=== PATIENT | female | born 1940 | race Caucasian/White ===

== ENCOUNTER 2018-02-25 08:24 | Day surgery (SDC) | payer MEDICARE, OTHER ==
[2018-02-24 15:00] VITALS: BMI 23.3
[2018-02-25] MEDS ORDERED: Oxymetazoline HCl 0.05% ( 15 ML ) ONE ×2 (08:47→09:59)
[2018-02-25 09:37] LABS: #Eosinphils 0.2 thou/uL (0.0-0.7); #Lymphocytes 1.8 thou/uL (1.20-3.40); #Monocytes 0.7 thou/uL (0.11-0.59); #Neutrophils 4.6 thou/uL (1.40-6.50); %Basophils 0.6 % (0.0-1.0); %Eosinophils 3.2 % (0.0-10.0); %Lymphocytes 24.3 % (21.0-51.0); %Monocytes 8.9 % (0.0-10.0); %Neutrophils 63.1 % (42.0-75.0); Hemoglobin 10.5 g/dL (14.0-18.0); Mean Corpuscular HGB CONC 32.8 g/dL (32.0-36.0); Mean Corpuscular Hemoglobin 30.1 pg (27.0-31.0); Mean Platelet Volume 7.5 fL (7.4-10.4); Platelet Count 376 thou/uL (130-400); White Blood Cell (WBC) Count 7.3 thou/uL (4.8-10.8)
[2018-02-25] MEDS ORDERED: Scopolamine 1.5 mg/72 hour Patch ONE (09:42)
[2018-02-25] MEDS ORDERED: Fentanyl 100 MCG/2 ML VIAL ONE ×3 (09:58→11:16)
[2018-02-25] MEDS ORDERED: Bacitracin Zinc Ointment 30 gm TUBE ONE (09:59)
[2018-02-25] MEDS ORDERED: Lidocaine 1% w/Epinephrine 1:100K 30 ML VIAL ONE (09:59)
[2018-02-25 10:14] LABS: Anion Gap 14 mmol/L (10-20); BUN (Urea Nitrogen) 16 mg/dL (8.4-25.7); Calc. Creatinine Clearance 60 mL/min (70-130); Calcium 8.8 mg/dL (7.8-10.44); Carbon Dioxide 20 mmol/L (23-31); Chloride 108 mmol/L (98-107); Estimated GFR-MDRD 87; Glucose 92 mg/dL (83-110); Potassium 4.6 mmol/L (3.5-5.1); Sodium 137 mmol/L (136-145)
[2018-02-25] MEDS ORDERED: Acetaminophen 500 MG TAB ONE (12:51)
--- NOTE | 2018-02-26 10:47 | OP ---
DATE OF PROCEDURE: 02/25/2018 PREOPERATIVE DIAGNOSES: 1. Closed nasal fracture. 2. Nasal septal deviation. 3. Nasal septal hematoma. 4. Bilateral inferior turbinate hypertrophy. 5. Nasal obstruction. POSTOPERATIVE DIAGNOSES: 1. Closed nasal fracture. 2. Nasal septal deviation. 3. Nasal septal hematoma. 4. Bilateral inferior turbinate hypertrophy. 5. Nasal obstruction. PROCEDURES: 1. Nasal septoplasty. 2. Bilateral inferior turbinate submucosal resection. 3. Closed reduction nasal fracture. SURGEON: Dr. Parish Cartwright. ESTIMATED BLOOD LOSS: 20 mL. COMPLICATIONS: None. ANESTHESIA: GETA. PROCEDURE IN DETAIL: Patient was taken to the operating room and placed supine on the table. General endotracheal anesthesia was obtained by the Anesthesia staff. Tube was secured in the left lower lip. Patient was then placed in the beach chair position, and Afrin pledgets were placed in the nasal cavity. Injections of 1% lidocaine with 1:100,000 epinephrine were made into the nasal septum as well as the inferior turbinates. Eh nt was then prepped and draped in standard surgical fashion for nasal surgery. Following this, the Afrin pledgets were removed. A Ki llian incision was made on the left nasal septum. Submucoperichondrial dissection was performed. The deviated portions of the septum included portions of the cartilage and the bony septum. These isolate d areas were removed using three cutting rongeurs. There was noted to be a large dorsal and caudal stru t, left intact for support of the nose. The mucoperichondrial flaps were then reapproximated using a 4-0 gut stitch. Any straight pieces of cartilage were crushed prior to this and placed between the mucoperichondrial flaps. Following this, the inferior turbinates were then punctured with a submucosa l coblation wand, and submucosal coblations were performed of multiple areas of the inferior portion of the anterior inferior turbinate. Please note that the coblation device was used to submucosally coblate the anterior and inferior port ions of the inferior turbinates bilaterally. Following this, the nasal bones were then remobilized a nd replaced within a normal symmetrical anatomical position using the [place] elevator. Following this , the dorsum of the nasal cavity was irrigated. Cuellar splints were placed and secured, and external Wilner splint was placed on the nasal bones. The patient tolerated the procedure well.
== END 2018-02-25 13:59 | disposition home or self-care (01) ==
LOC: EDSEX → SDC 08:24
PROVIDERS: ATTEND Otolaryngology Plastic Surgery within the Head & Neck
PROC: 0NSBXZZ Reposition Nasal Bone, External Approach (ICD-10-PCS; principal; 2018-02-25)
PROC: 09SM0ZZ Reposition Nasal Septum, Open Approach (ICD-10-PCS; 2018-02-25)
PROC: 09TL7ZZ Resection of Nasal Turbinate, Via Natural or Artificial Opening (ICD-10-PCS; 2018-02-25)
DX: J34.2 Deviated nasal septum (principal); J34.3 Hypertrophy of nasal turbinates; S02.2XXA Fracture of nasal bones, initial encounter for closed fracture; J34.89 Other specified disorders of nose and nasal sinuses; Z79.82 Long term (current) use of aspirin; Z79.899 Other long term (current) drug therapy; Z88.2 Allergy status to sulfonamides; Z88.5 Allergy status to narcotic agent; Z88.8 Allergy status to other drugs, medicaments and biological substances; Z98.1 Arthrodesis status; Z98.49 Cataract extraction status, unspecified eye; Z96.1 Presence of intraocular lens; Z96.669 Presence of unspecified artificial ankle joint; Z98.890 Other specified postprocedural states; W01.0XXA Fall on same level from slipping, tripping and stumbling without subsequent striking against object, initial encounter
CPT/HCPCS: 36415; 80048; 85025; 96374; J2001; J3010